=== PATIENT | male | born 1935 | race African-American/Black ===

== ENCOUNTER 2017-05-27 15:06 | Inpatient (IN) | payer OTHER, BC ==
[~2017-05-27] VITALS: Ht 175.3 cm; Wt 72.6 kg
--- NOTE | ~2017-05-27 | P ---
[facility] [place] [address] PROCEDURE REPORT Name: RENATO MARTINEZ Room #: 303-P [facility] IN ..#: [id number] Admission: 05/27/17 Attend Phys: Deshaun Leos DO Discharge: Date of : 35 Report #: [id number] THIS REPORT FOR: //name// CC: Van Leos PROCEDURE: Bi-V ICD generator exchange. PREOPERATIVE DIAGNOSIS: Biventricular implantable cardioverter-defibrillator at end of service. POSTOPERATIVE DIAGNOSIS: Biventricular implantable cardioverter-defibrillator at end of service. HISTORY OF PRESENT ILLNESS: The patient is an 82-year-old male with history of ischemic cardiomyopathy who was admitted to the hospital with congestive heart failure and was found to have a biventricular ICD, Medtronic, that was end of service. He is here for generator exchange. ANESTHESIA: The patient underwent MAC anesthesia with no anesthesia related complications. DESCRIPTION OF PROCEDURE: The patient underwent informed consent. We discussed the details of the procedure including the risks, which include but not limited to bleeding, infection, vascular damage, cardiac perforation and need for possible lead revisions. He understood these risks and is willing to proceed. He was brought to the EP laboratory in a fasting and sedated state and received IV vancomycin for antibiotic prophylaxis. Next, I injected lidocaine at the prior incision site. Incision was made and the pocket was opened. I had to perform dissection of the lead out because it was anchored to the bottom of the pocket making removal of device challenging. Eventually, these leads were freed and the leads were disconnected. He does have an underlying rhythm. The new device was connected and found to be functioning normally and I irrigated the pocket with vancomycin. I did take care of some bleeding in the pocket as well. I then placed a Medtronic TYRX antibiotic pouch due to his higher risk of infection. I then closed the pocket in 3 layers and placed surgical glue to the outer skin layer. Due to the extensive pocket revision required, I placed a pressure dressing to prevent any bleeding. The patient awoke neurologically and hemodynamically intact with no significant bleeding. The explanted generator was a Medtronic model #E421RRT, serial #[id number]. Originally implanted in November 2011. The newly implanted generator was a [employer] model #[id number], serial #[id number]. The atrial lead was a Medtronic model #4076, serial #[id number], implanted in 2011. The RV lead was a Medtronic model #6947, serial #[id number], also implanted in 2011. The LV lead was a Medtronic model #4296, serial #[id number], implanted in 2011. The atrial lead demonstrated a P-wave of 2 millivolts, the pacing impedance of 540 ohms and a pacing threshold [facility] [address] [place] [address] PROCEDURE REPORT Name: RENATO MARTINEZ Room #: 303-P [facility] IN .R.#: [id number] Admission: 05/27/17 Attend Phys: Deshaun Leos DO Discharge: Date of : 35 Report #: [id number] of 2 volts at 0.8 milliseconds. The RV lead demonstrated R waves greater than 12 millivolts, pacing impedance of 390 ohms, pacing threshold volts at 0.4 milliseconds. The shock impedances were within normal limits. The LV lead demonstrated a pacing impedance of 610 ohms and a pacing threshold of 1 volt at 0.5 milliseconds. The device is programmed to the DDD 60-130 mode. The VF zone was programmed at greater than beats per minute with ATP while charging followed by max output shocks. The VT zone was set at 180-220 beats per minute with 3 rounds of bursts followed by 3 rounds of ramp followed by max output shocks. CONCLUSIONS: 1. Successful generator exchange. 2. Satisfactory atrial, right ventricular and left ventricular pacing thresholds. 3. Successful implantation of a [employer]fort[employer]onic TYRX pouch. By: [id number] Peter Strauss MD /nt
--- NOTE | ~2017-05-27 | HC ---
[facility] [place] [address] CONSULTATION Name: RENATO MARTINEZ Room #: 303-P [facility] IN ..#: [id number] Admission: 05/27/17 Attend Phys: Deshaun Leos DO Discharge: Date of : 35 Report #: [id number] THIS REPORT FOR: //name// CC: Van Cal Leos REASON FOR CONSULTATION: His biventricular ICD is at the end of service. HISTORY OF PRESENT ILLNESS: The patient is an 82-year-old with a history of coronary artery disease, status post bypass surgery as well as a history of ischemic cardiomyopathy, status post Medtronic biventricular ICD implantation in 2011. His device was interrogated and found to be at end of service. The patient denies any problems with chest pain or chest tightness. He has been having worsening exertional dyspnea at home. He denies any chest pain. He denies PND, orthopnea. He denies presyncope or syncope. He denies lower extremity edema. REVIEW OF SYSTEMS: A 12-point review of systems was performed and was otherwise negative other than what I mentioned above. PAST MEDICAL HISTORY: 1. CAD, status post bypass. 2. Ischemic cardiomyopathy. 3. COPD. 4. Medtronic Bi-V ICD implanted in 2011. 5. Hypertension. 6. Hyperlipidemia. SOCIAL HISTORY: Quit smoking 50 years ago. FAMILY HISTORY: Significant for diabetes. ALLERGIES: He has no known drug allergies. HOME MEDICATIONS: Include chlorthalidone, nifedipine, ramipril, Lipitor, aspirin, hydrochlorothiazide and he is on Levaquin here. PHYSICAL EXAMINATION: VITAL SIGNS: Temperature 37.2, pulse 89, respiration 18, blood pressure 124/59, sats are 92% to 100%. All his temps here have been afebrile since admission. I's and O's reviewed. GENERAL: He is in no acute distress. HEENT: Oropharynx is clear. NECK: Supple, with no thyromegaly. HEART: Regular rate and rhythm with no murmurs, rubs, gallops. LUNGS: Clear to auscultation bilaterally with some mild wheezes. ABDOMEN: Soft, nontender, nondistended with no hepatosplenomegaly. [facility] [address] [place] [address] CONSULTATION Name: RENATO MARTINEZ Room #: 303-P [facility] IN [facility].#: [id number] Admission: 05/27/17 Attend Phys: Deshaun Leos DO Discharge: Date of : 35 Report #: [id number] EXTREMITIES: There is no clubbing, cyanosis or edema. NEUROLOGIC: His cranial nerves 2-12 are intact. His incision site appears to have healed nicely with no signs of infection. LABORATORY DATA: White count is 12.1, down from 17; hemoglobin is 11.3, hematocrit 33.5 and his platelets are 311. Chemistries: Sodium is 134, potassium 4.1, BUN 47, creatinine 2.5 up from 1.9, glucose 169. Troponin is negative times 1. ProBNP is elevated at 4011. His EKG showed sinus tachycardia with ventricular paced rhythm. His initial chest x-ray on admission showed a Bi-V ICD in place with sternal wires and what appears to be pulmonary edema and on repeat chest x-ray, this appears to be improved. His echocardiogram shows his EF is 40% to 45%. There is hypokinesis the base of the inferior wall. The calculated aortic valve area is 0.8 cm with a maximum pressure gradient of 38 and mean gradient of 21. His aortic valve planimetry is 1 cm2. ASSESSMENT: 1. Acute on chronic systolic heart failure. 2. Ischemic cardiomyopathy. 3. Coronary artery disease. 4. Moderate aortic stenosis. 5. Biventricular implantable cardioverter-defibrillator had end of service. The patient is an 82-year-old presenting with worsening shortness of breath who appears to have presented with likely a mixture of COPD and acute on chronic systolic heart failure. It appears that his chest x-ray is improving. He has a component of acute renal failure with an increase in his creatinine. His UNIQUE inhibitor is currently on hold. We will currently hold off on any further diuretics. In terms of his device, he will require a generator exchange. I discussed the details of the procedure including the risks, which include but not limited to bleeding, infection and need for possible lead revision. He understands these risks and is willing to proceed. We discussed the importance of routine followup in the device clinic here at [facility] and he says he is willing to comply. <ELECTRONICALLY SIGNED> By: Peter Strauss MD 05/30/17 0834 1419 2313 Peter Strauss MD /nt
--- NOTE | ~2017-05-27 | HC ---
[facility] [place] [address] CONSULTATION Name: RENATO MARTINEZ Room #: 303-P [facility] IN .R.#: [id number] Admission: 05/27/17 Attend Phys: Deshaun Leos DO Discharge: 06/02/17 Date of : 35 Report #: [id number] THIS REPORT FOR: //name// CC: Van Castrotrever Leos DATE OF SERVICE: 05/28/2017 REASON FOR CONSULTATION: Acute respiratory failure. IMPRESSION: 1. Probable acute systolic congestive heart failure. 2. Bronchitis. 3. Distant history of tobacco use, possible chronic obstructive pulmonary disease. 4. History of pacemaker. 5. Hypertension. 6. Hyperlipidemia. 7. Arthritis. 8. History of atrial fibrillation. PLAN: Agree with current therapy and would consider doxycycline as the antibiotic, about to have pacemaker checked and has not seen a learning disabilities resource teacher since Dr. Lee retired. HISTORY OF PRESENT ILLNESS: An 82-year-old male comes into the hospital, relates he has been having some shortness of breath, cough, no sputum production. No fever, chills or sweats. Feels better this morning when seen. PAST MEDICAL HISTORY: Surgeries include bypass surgery, pacemaker. ALLERGIES: No known. MEDICATIONS: Per chart include chlorthalidone, nifedipine, ramipril, naproxen, atorvastatin, aspirin, hydrochlorothiazide. FAMILY HISTORY: Positive for diabetes. SOCIAL HISTORY: Tobacco, quit 50 years ago. Negative significant ETOH. REVIEW OF SYSTEMS: Positive cough, no sputum production, no ulcer or liver disease. No hemoptysis, hematemesis or hematuria. Positive history of atrial fibrillation. No dysuria. Feels less short of breath currently. PHYSICAL EXAMINATION: VITAL SIGNS: Temperature 99.7, pulse 103, respirations 14, BP 135/59. [facility] [address] [place] [address] CONSULTATION Name: RENATO MARTINEZ Room #: 303-P [facility] IN ..#: [id number] Admission: 05/27/17 Attend Phys: Deshaun Leos DO Discharge: 06/02/17 Date of : 35 Report #: [id number] EYES: Negative icterus. LUNGS: Showed few crackles at bases. HEART: Regular. ABDOMEN: Bowel sounds present. EXTREMITIES: Showed no clubbing, cyanosis or edema. LABORATORY DATA: White count 17, hemoglobin 11.5, platelets 308, bands 8, BUN 31, creatinine 2, glucose 128, proBNP 4011. Troponin 0.05. Chest x-ray showed pulmonary infiltrates. Creatinine today 1.9. White count 11.2, hemoglobin 10.8, platelets 290, no bands. We will follow closely with you. <ELECTRONICALLY SIGNED> By: Tila Mehta MD 06/05/17 1511 1804 937 Tila Mehta MD /nt
--- NOTE | ~2017-05-27 | 2DMMODE ---
[facility] [address] [address] 2 D/M-MODE ECHOCARDIOGRAM Name: MICHELLERENATO Abdelrahman Room #: 303-P [facility] IN [facility]#: [id number] Admission: 05/27/17 Attend Phys: Deshaun Leos, Discharge: Date of : 35 Date of Service: 05/29/17 1123 Report #: [id number] THIS REPORT FOR: //name// APPROVED REPORT Study performed: 05/29/2017 08:49:52 EXAM: Comprehensive 2D, Doppler, and color-flow Echocardiogram Patient Location: Bedside Other Information Study Quality: Adequate Indications Congestive Heart Failure COPD Atrial Fibrillation CAD Hypertension/HDD 2D Dimensions RVDd: 39.28 mm LVEF(%): 36.43 (>50%) IVSd: 9.72 (7-11mm) LVOT Diam: 18.64 (18-24mm) LVDd: 45.04 mm PWd: 9.56 (7-11mm) Ascending Ao: 26.33 (22-36mm) LVDs: 37.21 (25-40mm) Aortic Root: 32.19 mm IVC: 12.00 mm Patrick's LVEF: 36.43 % Volumes Left Atrial Volume (Systole) Single Plane 4CH: 76.71 mL Single Plane 2CH: 82.10 mL LA ESV Index: 45.00 mL/m2 Aortic Valve AoV Peak Dominic.: 3.08 m/s AO Peak Gr.: 38.00 mmHg LVOT Max P.23 mmHg AO Mean Gr.: 21.23 mmHg LVOT Mean P.55 mmHg AO V2 Mean: 2.19 m/s LVOT Max V: 0.90 m/s AO V2 VTI: 63.67 cm LVOT Mean V: 0.56 m/s ABUNDIO (VTI): 0.59 cm2 LVOT V1 VTI: 13.66 cm ABUNDIO Vmax: 0.80 cm2 SV (LVOT): 37.26 mL [facility] [place] [address] 2 D/M-MODE ECHOCARDIOGRAM Name: RENATO MARTINEZ Room #: 303-P [facility] IN ..#: [id number] Admission: 05/27/17 Attend Phys: Deshaun Leos, Discharge: Date of : 35 Date of Service: 05/29/17 1123 Report #: [id number] Mitral Valve E/A Ratio: 1.2 MV Decel. Time: 155.06 ms MV E Max Dominic.: 1.26 m/s MV A Dominic.: 1.01 m/s IVRT: 86.51 ms Pulmonary Valve PV Peak Dominic.: 1.15 m/s PV Peak Gr.: 5.32 mmHg Pulmonary Vein P Vein S: 0.65 m/s P Vein A: 0.10 m/s P Vein D: 0.66 m/s P Vein A Dur.: 79.6 msec P Vein S/D Ratio: 0.98 Tricuspid Valve TR Peak Dominic.: 3.71 m/s RAP Estimate: 5.00 mmHg TR Peak Gr.: 55.17 mmHg Left Ventricle The left ventricle is normal size. There is normal left ventricular wall thickness. Left ventricular systolic function is moderately decreased. Hypokinesis involving base of inferior wall LVEF is 40-45%. This study is not technically sufficient to allow evaluation of the LV diastolic function. Right Ventricle Right ventricle is normal Right ventricle is function is normal Atria Left atrium is dilated. Right atrium is normal Aortic Valve The Aortic valve is sclerotic. Mild aortic regurgitation. There is moderate to severe valvular aortic stenosis. Calculated aortic valve area is 0.8 cm2 with maximum pressure gradient of 38 mmHg and mean pressure gradient of 21 mmHg. Aortic valve planimetry is 1.0 cm2. Mitral Valve Mild mitral annular calcification Mild mitral regurgitation. No evidence of mitral valve stenosis. Tricuspid Valve The tricuspid valve is normal in [place] [address] 2 D/M-MODE ECHOCARDIOGRAM Name: MICHELLERENATO Abdelrahman Room #: 303-P [facility] IN M.R.#: [id number] Admission: 05/27/17 Attend Phys: Deshaun Leos, Discharge: Date of : 35 Date of Service: 05/29/17 1123 Report #: [id number] regurgitation. Pulmonic Valve The pulmonary valve is normal in structure. Trace to mild pulmonic regurgitation. Great Vessels The aortic root is normal in size. IVC is normal in size and collapses >50% with inspiration. Pericardium There is no pericardial effusion. <Conclusion> Left ventricular systolic function is moderately decreased. Hypokinesis involving base of inferior wall LVEF is 40-45%. Left atrium is dilated. The Aortic valve is calcified, moderately severe valvular aortic stenosis. Peak pressure gradient of 38 mmHg and mean pressure gradient of 21 mmHg. Mild mitral regurgitation. Pulmonary artery pressure of 60mmHg No pericardial effusion <ELECTRONICALLY SIGNED> By: Aureliano Narvaez MD, FACC 05/29/17 1123 22 22 Aureliano Narvaez MD, FACC /INF
--- NOTE | ~2017-05-27 | HC ---
[facility] [address] CONSULTATION Name: RENATO MARTINEZ Room #: 303-P [facility] IN M.R.#: [id number] Admission: 05/27/17 Attend Phys: Deshaun Leos DO Discharge: Date of : 35 Report #: [id number] THIS REPORT FOR: //name// CC: Van Leos INFECTIOUS DISEASES CONSULTATION REASON FOR CONSULTATION: I was asked to evaluate the patient concerning bronchitis, possible pneumonia in the setting of congestive heart failure and the need for a permanent pacemaker battery exchange. HISTORY OF PRESENT ILLNESS: The patient presented on 05/27 with rather acute onset of shortness of breath following a week or so of productive cough of [id number] sputum. No fever, chills or sweats. Brought in the emergency room and found to have bilateral infiltrates and some effusion. His oxygen saturation was 84% on arrival. He was given oxygen per nasal cannula and improved over 90%. It was suspected that he may have a component of pneumonia and was placed on Levaquin. His creatinine was 2 and white count was 17 with a BNP of 4000. Over the last 48 hours, he has improved. He still remains on oxygen per nasal cannula, but his cough has lessened and the shortness of breath has improved as well. Cardiology evaluates and recommends permanent pacemaker battery exchange. PAST MEDICAL HISTORY: Hypertension, hyperlipidemia, atrial fibrillation, COPD and coronary bypass grafting. FAMILY HISTORY: Noncontributory. ALLERGIES: None known. MEDICATIONS: As noted on his MAR, including Levaquin. SOCIAL HISTORY: Past smoker. No significant alcohol intake. Lives with his and did travel to [place] 2 weeks ago. REVIEW OF SYSTEMS: No chest pain, nausea, vomiting, diarrhea, dysuria or frequency. PHYSICAL EXAMINATION: VITAL SIGNS: He is afebrile and hemodynamically stable. GENERAL: He was alert, cooperative and pleasant, on oxygen per nasal cannula at 2 liters. HEENT: Unremarkable, other than multiple teeth missing. NECK: Supple. LUNGS: Crackles heard mostly in the bases posteriorly. HEART: Regular with a 2/6 systolic murmur heard at the left sternal border. [facility] [address] [place] [address] CONSULTATION Name: RENATO MARTINEZ Room #: 303-P [facility] IN .R.#: [id number] Admission: 05/27/17 Attend Phys: Deshaun Leos DO Discharge: Date of : 35 Report #: [id number] ABDOMEN: Soft, nontender. No hepatosplenomegaly or mass. EXTREMITIES: No peripheral edema. NEUROLOGICAL EXAMINATION: Normal. LABORATORY DATA: Echocardiogram, moderately severe aortic stenosis. Chest x-ray, bilateral infiltrates with fluid in the right major fissure and small effusions. Hemoglobin 11.3, white count 12 with 84% segs, 2% bands and platelet count was 311,000. Sodium 134, potassium 4.1, bicarbonate 22 and creatinine 2.5. IMPRESSION AND PLAN: An 82-year-old with underlying coronary artery disease and permanent pacemaker, presents with congestive heart failure and component of bronchopneumonia. Agree with Levaquin. We would give dose of vancomycin at the time of his pacemaker exchange. This will be scheduled for later this week. We will await sputum culture results and we will check a urine for Legionella and Strep pneumo. <ELECTRONICALLY SIGNED> By: Tyrese Banuelos MD 05/30/17 1426 1638 2306 Tyrese Banuelos MD /nt
--- NOTE | ~2017-05-27 | EKG ---
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1935 Requested By: Yarelis Don Order Number: [id number] MD: Aureliano Narvaez Measurements Intervals [place] Rate: 105 P: -12 VA: 156 QRS: 139 QRSD: 154 T: 62 QT: 360 QTc: 476 Interpretive Statements Sinus rhythm with atrial premature complexes Left bundle branch block Compared to ECG 09/24/2011 10:17:40 Ventricular premature complex(es) no longer present Electronically Signed On 05-29-2017 9:20:59 CDT by Aureliano Narvaez [email or web address] <ELECTRONICALLY SIGNED> By: Aureliano Narvaez MD, [facility] 05/29/17 0920 1514 1514 Aureliano Narvaez MD, [facility] /EPI
[~2017-05-27 15:06] MED LIST: ACETAMINOPHEN325 M1 PO; ALEVE220 M1; ALTACE10 M1; ASPIRIN EC81 M1; CARVEDILOL12.5 MG; DILTIAZEM ER300 MG; HIGH B/P MED; HYDROCHLOROTHIA25 M1; LIPITOR40 MG; NIFEDICAL XL30 MG PO; NIFEDIPINE10 MG PO
[2017-05-27 15:11] VITALS: BP 147/71
[2017-05-27 15:46] LABS: HEMATOCRIT 34.9 % (42.0-52.0); HEMOGLOBIN 11.5 gm/dL (14.0-18.0); MCH 27.8 pg (26.0-34.0); MCV 84.2 fL (80.0-100.0); PLATELET COUNT 308 thou/uL (150-400); RBC 4.14 mil/uL (4.50-6.00); RDW 15.2 % (10.5-14.5)
[2017-05-27 15:47] LABS: MANUAL DIFF YES
[2017-05-27 15:54] LABS: CALCIUM 9.4 mg/dL (8.5-10.1); POTASSIUM 3.8 mmol/L (3.5-5.1)
[2017-05-27 16:05] LABS: ABSOLUTE NEUTROPHILS 16.2 thou/uL (1.4-8.2); HYPOCHROMASIA SLIGHT; OVALOCYTES OCCASIONAL; TOTAL CELL COUNT 100
[2017-05-27 16:06] LABS: TROPONIN-I 0.05 ng/mL (<0.04-0.07)
[2017-05-27] MEDS ORDERED: CHLORTHALIDONE50 MG PO (17:00)
[2017-05-27 17:55] VITALS: BP 148/68
[2017-05-27 18:38] VITALS: BP 158/69
[2017-05-27] MEDS ORDERED: TYLENOL325 MG PO (20:09)
[2017-05-27 23:30] VITALS: BP 136/70
[2017-05-28 04:18] VITALS: BP 139/67
[2017-05-28 07:37] LABS: HEMOGLOBIN 10.8 gm/dL (14.0-18.0); MCH 27.3 pg (26.0-34.0); MCHC 32.6 g/dL (28.0-37.0); MCV 83.5 fL (80.0-100.0); PLATELET COUNT 290 thou/uL (150-400); RBC 3.95 mil/uL (4.50-6.00); RDW 15.1 % (10.5-14.5); WBC 11.2 thou/uL (4.0-11.0)
[2017-05-28 07:41] LABS: MANUAL DIFF YES
[2017-05-28 07:47] LABS: CREATININE 1.9 mg/dL (0.7-1.3); POTASSIUM 3.7 mmol/L (3.5-5.1)
[2017-05-28 07:55] VITALS: BP 135/59
[2017-05-28 10:05] LABS: ABSOLUTE NEUTROPHILS 10.1 thou/uL (1.4-8.2); TOTAL CELL COUNT 100
[2017-05-28 10:06] LABS: ANISOCYTOSIS 1+
[2017-05-28 11:57] VITALS: BP 163/72
[2017-05-28 15:17] VITALS: BP 132/69
[2017-05-28 18:59] VITALS: BP 137/66
[2017-05-29 03:45] VITALS: BP 136/62
[2017-05-29 03:49] LABS: HEMATOCRIT 33.5 % (42.0-52.0); HEMOGLOBIN 11.3 gm/dL (14.0-18.0); MCH 27.7 pg (26.0-34.0); MCHC 33.6 g/dL (28.0-37.0); MCV 82.6 fL (80.0-100.0); PLATELET COUNT 311 thou/uL (150-400); RBC 4.06 mil/uL (4.50-6.00); RDW 14.9 % (10.5-14.5); WBC 12.1 thou/uL (4.0-11.0)
[2017-05-29 03:50] LABS: CALCIUM 9.1 mg/dL (8.5-10.1); CREATININE 2.5 mg/dL (0.7-1.3); POTASSIUM 4.1 mmol/L (3.5-5.1)
[2017-05-29 03:59] LABS: MANUAL DIFF YES
[2017-05-29 07:42] VITALS: BP 124/59
[2017-05-29 08:40] LABS: ABSOLUTE NEUTROPHILS 10.4 thou/uL (1.4-8.2); PLATELET ESTIMATE NORMAL; TOTAL CELL COUNT 100
[2017-05-29 15:07] VITALS: BP 141/61
[2017-05-29 19:35] VITALS: BP 141/59
[2017-05-30 04:00] VITALS: BP 140/69
[2017-05-30 05:42] LABS: HEMATOCRIT 33.8 % (42.0-52.0); HEMOGLOBIN 11.4 gm/dL (14.0-18.0); MCH 27.9 pg (26.0-34.0); MCHC 33.6 g/dL (28.0-37.0); MCV 82.8 fL (80.0-100.0); RBC 4.08 mil/uL (4.50-6.00); RDW 14.9 % (10.5-14.5); WBC 10.5 thou/uL (4.0-11.0)
[2017-05-30 06:02] LABS: CREATININE 2.1 mg/dL (0.7-1.3); POTASSIUM 3.8 mmol/L (3.5-5.1)
[2017-05-30 08:15] VITALS: BP 142/56
[2017-05-30 15:46] VITALS: BP 127/58
[2017-05-30 19:18] VITALS: BP 140/62
[2017-05-31 03:01] VITALS: BP 126/60
[2017-05-31 09:06] VITALS: BP 137/66
[2017-05-31 13:16] LABS: HEMATOCRIT 32.9 % (42.0-52.0); HEMOGLOBIN 10.9 gm/dL (14.0-18.0); MANUAL DIFF YES; MCH 27.6 pg (26.0-34.0); MCHC 33.1 g/dL (28.0-37.0); MCV 83.4 fL (80.0-100.0); PLATELET COUNT 347 thou/uL (150-400); RBC 3.95 mil/uL (4.50-6.00); RDW 15.1 % (10.5-14.5); WBC 11.3 thou/uL (4.0-11.0)
[2017-05-31 13:27] LABS: CALCIUM 9.3 mg/dL (8.5-10.1); CREATININE 2.5 mg/dL (0.7-1.3); POTASSIUM 3.7 mmol/L (3.5-5.1)
[2017-05-31 13:29] LABS: INR 1.1; PROTIME 10.8 Seconds (9.3-11.4)
[2017-05-31 13:49] LABS: ABSOLUTE NEUTROPHILS 9.9 thou/uL (1.4-8.2); ANISOCYTOSIS 1+; HYPOCHROMASIA 1+; TOTAL CELL COUNT 100
[2017-05-31 15:13] VITALS: BP 128/61
[2017-05-31 19:20] VITALS: BP 132/54
[2017-05-31 23:43] VITALS: BP 136/66
[2017-06-01 04:18] VITALS: BP 129/60
[2017-06-01 07:48] VITALS: BP 145/76
[2017-06-01 13:19] VITALS: BP 151/74
[2017-06-01 14:16] VITALS: BP 134/66
[2017-06-01 15:11] VITALS: BP 119/63
[2017-06-01 20:00] VITALS: BP 125/57
[2017-06-02 04:00] VITALS: BP 142/60
[2017-06-02 08:25] VITALS: BP 136/66
[2017-06-02] MEDS ORDERED: LOPRESSOR25 PO (09:32)
[2017-06-02 13:14] VITALS: BP 136/66
[2017-06-02 14:52] VITALS: BP 136/66
[2017-06-02] MEDS ORDERED: LEVAQUIN 750 M750 MG PO (15:03)
[2017-06-02 15:45] VITALS: BP 136/66
== END 2017-06-02 15:40 | disposition home health service (06) | DRG 853 ==
LOC: ER 15:06 → EROBS 16:44 → 3N 16:44
PROVIDERS: Emergency Medicine; Family Medicine; Internal Medicine Cardiovascular Disease; Internal Medicine Pulmonary Disease
PROC: 0JH608Z Insertion of Defibrillator Generator into Chest Subcutaneous Tissue and Fascia, Open Approach (ICD-10-PCS; principal; 2017-06-02)
PROC: 0JPT0PZ Removal of Cardiac Rhythm Related Device from Trunk Subcutaneous Tissue and Fascia, Open Approach (ICD-10-PCS; principal; 2017-06-02)
DX: A41.9 Sepsis, unspecified organism (principal); N17.0 Acute kidney failure with tubular necrosis; J18.9 Pneumonia, unspecified organism; J96.01 Acute respiratory failure with hypoxia; I50.23 Acute on chronic systolic (congestive) heart failure; J44.0 Chronic obstructive pulmonary disease with (acute) lower respiratory infection; I13.0 Hypertensive heart and chronic kidney disease with heart failure and stage 1 through stage 4 chronic kidney disease, or unspecified chronic kidney disease; E78.5 Hyperlipidemia, unspecified; I48.91 Unspecified atrial fibrillation; I25.10 Atherosclerotic heart disease of native coronary artery without angina pectoris; I25.5 Ischemic cardiomyopathy; I35.0 Nonrheumatic aortic (valve) stenosis; J20.9 Acute bronchitis, unspecified; M19.90 Unspecified osteoarthritis, unspecified site; I27.2 Other secondary pulmonary hypertension; N18.9 Chronic kidney disease, unspecified; Z95.1 Presence of aortocoronary bypass graft; Z87.891 Personal history of nicotine dependence; Z83.3 Family history of diabetes mellitus
CPT/HCPCS: 10096; 62110; 62900; 70005

== ENCOUNTER 2017-06-21 11:06 | Emergency (ER) | payer OTHER, BC ==
[~2017-06-21] VITALS: Ht 175.3 cm; Wt 73.5 kg
--- NOTE | ~2017-06-21 | EKG ---
[place] [address] [place] [address] ELECTROCARDIOGRAM REPORT Name: RENATO MARTINEZ [facility] [id number] Admission: 06/21/17 Attend Phys: Discharge: 06/21/17 Date of : 35 Report #: [id number] THIS REPORT FOR: //name// [facility] ED Test Date: 2017-06-21 Test Time: 11:28:30 Pat Name: RENATO MARTINEZ Department: Room: Gender: Photograph [facility] 1935 Requested By: Delon Franklin Order Number: [id number] MD: Aureliano Narvaez Measurements Intervals [place] Rate: 70 P: 10 SD: 156 QRS: 149 QRSD: 150 T: 12 QT: 443 QTc: 479 Interpretive Statements Atrial-sensed ventricular-paced rhythm No further analysis attempted due to paced rhythm Compared to ECG 05/27/2017 15:14:25 No significant change was found Electronically Signed On 06-22-2017 8:57:28 CDT by Aureliano Narvaez [email or web address] <ELECTRONICALLY SIGNED> By: Aureliano Narvaez MD, [facility] 06/22/17 0857 1128 1128 Aureliano Narvaez MD, [facility] /EPI
--- NOTE | ~2017-06-21 | EKG ---
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
[~2017-06-21 11:06] MED LIST changes: +CHLORTHALIDONE50 MG PO; +LEVAQUIN 750 M750 MG PO; +LOPRESSOR25 PO; +TYLENOL325 MG PO
[2017-06-21 11:48] LABS: ABSOLUTE NEUTROPHILS 5.6 thou/uL (1.4-8.2); BASOPHILS 1.4 % (0.0-2.0); EOSINOPHILS 1.5 % (0.0-3.0); HEMATOCRIT 31.6 % (42.0-52.0); HEMOGLOBIN 10.4 gm/dL (14.0-18.0); MANUAL DIFF NO; MCH 27.4 pg (26.0-34.0); MCHC 32.9 g/dL (28.0-37.0); MCV 83.3 fL (80.0-100.0); MONOCYTES 7.8 % (1.0-8.0); PLATELET COUNT 379 thou/uL (150-400); POLYS 75.3 % (36.0-66.0); RDW 14.8 % (10.5-14.5); WBC 7.4 thou/uL (4.0-11.0)
[2017-06-21 11:54] LABS: CALCIUM 9.1 mg/dL (8.5-10.1); CREATININE 1.9 mg/dL (0.7-1.3); POTASSIUM 4.8 mmol/L (3.5-5.1)
[2017-06-21] MEDS ORDERED: MINOCIN100 MG PO (13:29)
== END 2017-06-21 13:43 | disposition home or self-care (01) ==
LOC: ER 11:06
PROVIDERS: Emergency Medicine
DX: L76.34 Postprocedural seroma of skin and subcutaneous tissue following other procedure (principal); I10 Essential (primary) hypertension; I48.91 Unspecified atrial fibrillation; E78.00 Pure hypercholesterolemia, unspecified; J44.9 Chronic obstructive pulmonary disease, unspecified; Z95.0 Presence of cardiac pacemaker; Z95.1 Presence of aortocoronary bypass graft; F10.99 Alcohol use, unspecified with unspecified alcohol-induced disorder; Z87.891 Personal history of nicotine dependence

== ENCOUNTER → 2017-12-14 | Outpatient (CLI) | payer OTHER, BC ==
[~2017-12-14] MED LIST changes: +MINOCIN100 MG PO
== END ==
LOC: NUC 07:10
DX: I48.91 Unspecified atrial fibrillation (principal); I35.0 Nonrheumatic aortic (valve) stenosis; I10 Essential (primary) hypertension; I25.10 Atherosclerotic heart disease of native coronary artery without angina pectoris; J44.9 Chronic obstructive pulmonary disease, unspecified; Z87.891 Personal history of nicotine dependence

== ENCOUNTER 2018-10-09 16:25 | Inpatient (IN) | payer OTHER, BC ==
[~2018-10-09] VITALS: Ht 175.3 cm; Wt 82.6 kg
--- NOTE | ~2018-10-09 | HC ---
[facility] [place] [address] CONSULTATION Name: RENATO MARTINEZ Room #: 362-P ADM IN M.R.#: [id number] Admission: 10/09/18 Attend Phys: Valentin Huizar MD Discharge: Date of : 35 Report #: [id number] THIS REPORT FOR: //name// CC: NO PCP Valentin Huizar DATE OF SERVICE: 10/10/2018 REASON FOR CONSULTATION: Chronic kidney disease. HISTORY OF PRESENT ILLNESS: The patient with known chronic kidney disease, baseline creatinine between 2 and 2.5 for many years, has known coronary artery disease with ischemic cardiomyopathy, ejection fraction 40%, and worsening aortic stenosis. He presents with worsening swelling and exertional dyspnea, particularly the lower extremities. He has gained at least 40-50 pounds of fluid. PAST MEDICAL HISTORY: He has a biventricular ICD, previous history of coronary artery bypass, history of chronic obstructive pulmonary disease, hypertension, paroxysmal atrial fibrillation, but in a paced rhythm for some time. He has not had any shocks from the defibrillator or any chest pain. HOME MEDICATIONS: As listed include ramipril 10 mg daily, carvedilol 25 mg b.i.d., furosemide 40 mg daily, atorvastatin 40 mg daily. SOCIAL HISTORY: Former smoker. Lives at home with his . FAMILY HISTORY: Positive for hypertension, but not kidney disease. It is strongly positive for heart disease and heart failure. REVIEW OF SYSTEMS: GENERAL: He has been deteriorating. EYES: His vision is okay. ENT: Hearing okay, swallow is okay. No mouth sores. ENDOCRINE: No diabetes or thyroid disease. RESPIRATORY: Easily short winded with borderline orthopnea. CARDIAC: No chest pain or palpitations. GASTROINTESTINAL: Excellent appetite. GENITOURINARY: A little bit of a decrease in urinary stream. NEUROLOGIC: No seizure, syncope or stroke, but has had a little bit worsening of balance and generalized weakness. MUSCULOSKELETAL: No arthritis. PHYSICAL EXAMINATION: GENERAL: This is a reasonably well-appearing gentleman, in reasonably good spirits, seen in his hospital bed. [facility] [address] [place] [address] CONSULTATION Name: RENATO MARTINEZ Room #: 362- ADM IN M.R.#: [id number] Admission: 10/09/18 Attend Phys: Valentin Huizar MD Discharge: Date of : 35 Report #: [id number] SKIN: Unremarkable except for the swelling. SKELETAL: Well developed, well nourished. HEENT: Extraocular movements are full. Vision intact. No scleral icterus. Hearing intact. Mucous membranes moist. Tongue, buccal mucosa benign. NECK: Supple, no carotid bruits are heard. CHEST: Shows slightly diminished breath sounds at the bases. HEART: Regular, but distant. ABDOMEN: Soft and nontender. EXTREMITIES: Show brawny generalized edema bordering on anasarca throughout. LABORATORY DATA: Creatinine is 2.1. Potassium is 4, BUN 42. Hemoglobin is 11.6. ASSESSMENT AND PLAN: 1. Anasarca. He has anasarca, multifactorial, related to his renal disease. He does have a slightly low serum albumin. I will check his urine proteins and urinalysis for completeness, although a complete renal workup is not needed here as he has had longstanding elevated creatinine, is followed by an outpatient supervisor counseling and guidance. He has been started on intermittent Lasix. We will see how he does with diuresis. He probably will need at the very least combination diuretics. We will have to watch his electrolytes carefully and proceed from there. 2. Ischemic cardiomyopathy with decreased left ventricular ejection fraction. 3. Aortic stenosis. He will get a repeat echo. 4. Biventricular implantable cardioverter-defibrillator with paced rhythm. 5. History of hypertension. By: 1106 1128 Eyad Ríos MD /nt
--- NOTE | ~2018-10-09 | EKG ---
[place] [address] [facility] [place] [address] ELECTROCARDIOGRAM REPORT Name: RENATO MARTINEZ Room #: 362-P ADM IN M.R.#: [id number] Admission: 10/09/18 Attend Phys: Valentin Huizar MD Discharge: Date of : 35 Report #: [id number] THIS REPORT FOR: //name// [facility] ED Test Date: 2018-10-09 Test Time: 16:38:56 Pat Name: RENATO MARTINEZ Department: Room: 362 Gender: M Etl Application Developer: YUNIOR : 1935 Requested By: Yarelis Don Order Number: [id number] MD: Aureliano Narvaez Measurements Intervals [place] Rate: 69 P: 14 [place]: 111 QRS: 162 QRSD: 150 T: -27 QT: 430 QTc: 461 Interpretive Statements Ventricular-paced rhythm No further analysis attempted due to paced rhythm Compared to ECG 06/21/2017 11:28:30 No significant change was found Electronically Signed On 10-10-2018 9:02:05 GRAVEL WHEELER by Aureliano Naravez [email or web address] <ELECTRONICALLY SIGNED> By: Aureliano Narvaez MD, [facility] 10/10/18 0902 1638 163 Aureliano Narvaez MD, [facility] /EPI
--- NOTE | ~2018-10-09 | 2DMMODE ---
[facility] [place] [address] 2 D/M-MODE ECHOCARDIOGRAM Name: RENATO MARTINEZ Room #: 362-P ADM IN M.R.#: [id number] Admission: 10/09/18 Attend Phys: Valentin Huizar MD Discharge: Date of : 35 Date of Service: 10/10/18 1505 Report #: [id number] THIS REPORT FOR: //name// APPROVED REPORT Study performed: 10/10/2018 09:55:49 EXAM: Comprehensive 2D, Doppler, and color-flow Echocardiogram Patient Location: Bedside Room #: 362 Status: routine BSA: 2.04 HR: 76 bpm BP: 150/75 mmHg Rhythm: Pacemaker Other Information Study Quality: Good Indications Short of breath, leg swelling. Hx: CABG, CHF, Pacemaker, COPD, HTN, HLP 2D Dimensions RVDd: 45.92 mm IVSd: 11.05 (7-11mm) LVOT Diam: 20.90 (18-24mm) LVDd: 50.05 mm PWd: 10.40 (7-11mm) Ascending Ao: 30.39 (22-36mm) LVDs: 41.70 (25-40mm) Aortic Root: 33.98 mm Volumes Left Atrial Volume (Systole) Single Plane 4CH: 76.05 mL Single Plane 2CH: 92.87 mL LA ESV Index: 45.00 mL/m2 Aortic Valve AoV Peak Dominic.: 3.26 m/s AO Peak Gr.: 42.49 mmHg LVOT Max P.89 mmHg AO Mean Gr.: 22.80 mmHg AO V2 Mean: 2.26 m/s LVOT Max V: 0.85 m/s AO V2 VTI: 67.30 cm ABUNDIO Vmax: 0.89 cm2 Mitral Valve [facility] [place] [address] 2 D/M-MODE ECHOCARDIOGRAM Name: RENATO MARTINEZ [facility] Room #: 362-P ADM IN M.R.#: [id number] Admission: 10/09/18 Attend Phys: Valentin Huizar MD Discharge: Date of : 35 Date of Service: 10/10/18 1505 Report #: [id number] E/A Ratio: 1.3 MV Decel. Time: 124.73 ms MV E Max Dominic.: 1.05 m/s MV A Dominic.: 0.78 m/s MV PHT: 36.17 ms IVRT: 64.59 ms Pulmonary Valve PV Peak Dominic.: 0.85 m/s PV Peak Gr.: 2.86 mmHg Pulmonary Vein P Vein S: 0.60 m/s P Vein D: 0.44 m/s P Vein S/D Ratio: 1.36 Tricuspid Valve TR Peak Dominic.: 3.84 m/s RAP Estimate: 10.00 mmHg TR Peak Gr.: 59.13 mmHg PA Pressure: 69.00 mmHg Left Ventricle The left ventricle is normal size. There is global hypokinesis of the left ventricle. There is normal left ventricular wall thickness. Left ventricular systolic function is moderate to severely decreased LVEF 35%. Right Ventricle Right ventricle is mildly dilated. Right ventricle is moderately hypokinetic. Atria Left atrium is mildly dilated. Right atrium is mildly dilated. Aortic Valve Aortic valve is heavily calcified. Mild aortic regurgitation. There is moderate to severe valvular aortic stenosis. Calculated aortic valve area is 0.9 cm2 with maximum pressure gradient of 42 mmHg and mean pressure gradient of 23 mmHg. Mitral Valve Mitral valve leaflets are mildly calcified. Mild mitral regurgitation. No evidence of mitral valve stenosis. Tricuspid Valve The tricuspid valve is normal in structure. Moderate tricuspid [address] [address] 2 D/M-MODE ECHOCARDIOGRAM Name: RENATO MARTINEZ Room #: 362-P [facility] IN ..#: [id number] Admission: 10/09/18 Attend Phys: Valentin Huizar MD Discharge: Date of : 35 Date of Service: 10/10/18 1505 Report #: [id number] regurgitation. Estimated PAP is 65mmHg. Pulmonic Valve The pulmonary valve is normal in structure. Trace pulmonic regurgitation. Great Vessels The aortic root is normal in size. The ascending aorta is normal in size. IVC is normal in size and collapses <50% with inspiration. Pericardium There is no pericardial effusion. <Conclusion> Left ventricular systolic function is moderate to severely decreased LVEF 35%. Both atria are dilated. Aortic valve is heavily calcified, moderate to severe valvular aortic stenosis. Calculated aortic valve area is 0.9 cm2 (Peak gradient of 42 mmHg, mean pressure gradient of 23 mmHg). Mild aortic regurgitation. Mitral valve leaflets are mildly calcified. Mild mitral regurgitation. Moderate tricuspid regurgitation. Estimated pulmonary artery pressure of 65mmHg. There is no pericardial effusion. <ELECTRONICALLY SIGNED> By: Aureliano Narvaez MD, FACC 10/10/18 1505 1505 1505 Aureliano Narvaez MD, FACC /INF
--- NOTE | ~2018-10-09 | HC ---
[facility] [place] [address] CONSULTATION Name: RENATO MARTINEZ Room #: 362-P ADM IN M.R.#: [id number] Admission: 10/09/18 Attend Phys: Valentin Huizar MD Discharge: Date of : 35 Report #: [id number] THIS REPORT FOR: //name// CC: NO PCP Valentin Huizar DATE OF SERVICE: 10/11/2018 HISTORY OF PRESENT ILLNESS: We were asked to see the patient by Dr. Garza. The patient is an 83-year-old with shortness of breath and fluid overload and admitted from the Emergency Department on 10/09/2018. Since admission, the patient was noted to have important calcific aortic stenosis. Echo shows a calculated valve area of 0.9 cm2 with a peak gradient of 42 mmHg and a mean gradient of 23 mmHg. Left ventricular function is reduced with an ejection fraction of approximately 35%. There is mild aortic incompetence and moderate tricuspid incompetence. No pericardial effusion was identified. A CT scan showed a thick pleura bilaterally with some calcification posteriorly. There was also fluid in the fissure which presents as a pseudotumor on chest x-ray. CT scan shows this to be fluid density, however. The patient has been treated with diuretics and has had weight loss and some resolution of his peripheral edema. Other medical problems this admission include acute on chronic renal dysfunction, heart failure exacerbation, diagnosis of community-acquired pneumonia with hypoxemia. ALLERGIES: None known. MEDICATIONS: Currently includes vitamin B12, folate, Lasix, chlorthalidone, magnesium, lisinopril, spironolactone, atorvastatin, aspirin, carvedilol, and acetaminophen. PAST SURGICAL HISTORY: Includes coronary artery bypass surgery in 2003 and a biventricular pacemaker. SOCIAL HISTORY: The patient is a former smoker. The patient states he worked for [employer] for many years. The patient does not know of any specific asbestos exposure in that capacity. REVIEW OF SYSTEMS: GENERAL: As mentioned, the patient was admitted with generalized weakness and shortness of breath. No fever or chills. HEENT: No headache. Denies change in vision. Denies change in hearing. No sore throat. [facility] [address] [place] [place] [address] CONSULTATION Name: RENATO MARTINEZ Room #: 362-P ADM IN M.R.#: [id number] Admission: 10/09/18 Attend Phys: Valentin Huizar MD Discharge: Date of : 35 Report #: [id number] PULMONARY: Shortness of breath with exertion. No productive cough. CARDIAC: No angina. Did have shortness of breath with fluid retention as an admitting complaint. GASTROINTESTINAL: No nausea, vomiting or blood. GENITOURINARY: No dysuria or blood. MUSCULOSKELETAL: No bone or joint complaints. SKIN: No rash or infection. NEUROLOGIC: No motor or sensory loss. No transient ischemic attacks. PSYCHIATRIC: No hallucinations or anxiety. HEMATOLOGIC: Denies symptoms of anemia. PHYSICAL EXAMINATION: VITAL SIGNS: Today, blood pressure 132/60, heart rate paced at 75, pulse ox 90% sat on room air, respiratory rate 20. HEENT: No scleral icterus. Pupils equal. No obvious arcus. NECK: No cervical bruits. CHEST: Decreased breath sounds, right worse than left, crackles at bases bilaterally. ABDOMEN: Soft, no mass, no tenderness. SKIN: No rash or infection. EXTREMITIES: No asymmetry or deformity. NEUROLOGIC: No obvious motor or sensory loss. PSYCHIATRIC: Mood and affect are appropriate. I reviewed the case with Dr. Tineo and with Dr. Garza. I also reviewed the CT scan with Dr. Awad in Radiology. There is some pleural thickening, right worse than left and some calcification posteriorly. Typically, the calcification is evidence of benign disease. The pleural thickening is somewhat concerning for mesothelioma. There is also a loculated fluid within the fissure on the right side, but this does not appear to be a primary pulmonary lesion, but rather the pseudotumor as described. I reviewed risks and details of video-assisted thoracoscopy with pleural biopsy with the patient. This would require general anesthesia, however. Risks and details of surgery were discussed. These include, but are not limited to, bleeding, infection, anesthesia risks, heart and lung problems, and of course include the imponderables of diagnosis. Options and alternatives were reviewed. In as much as the patient has important aortic stenosis that is not being treated specifically and it does not appear that there is a plan for treatment, I think the risk/benefit ratio of pleural biopsy at this point favors observational treatment. Even if mesothelioma is found, that is not something that would be easily and successfully treated. Risks and details were discussed with the patient who understands all of this and agrees. [address] [address] CONSULTATION Name: RENATO MARTINEZ Room #: 362-P ADM IN M.R.#: [id number] Admission: 10/09/18 Attend Phys: Valentin Huizar MD Discharge: Date of : 35 Report #: [id number] Thank you for the consult. By: 1234 1322 Renato Osborne MD /nt
[~2018-10-09 16:25] MED LIST changes: -ALTACE10 M1; +ALTACE10 MG PO
[2018-10-09 16:28] VITALS: BP 136/94
[2018-10-09] MEDS ORDERED: COREG25 MG PO (17:20)
[2018-10-09 17:21] LABS: ABSOLUTE NEUTROPHILS 4.8 thou/uL (1.4-8.2); BASOPHILS 1.2 % (0.0-2.0); EOSINOPHILS 1.1 % (0.0-3.0); HEMATOCRIT 37.1 % (42.0-52.0); HEMOGLOBIN 12.2 gm/dL (14.0-18.0); LYMPHOCYTES 9.7 % (24.0-44.0); MCH 28.7 pg (26.0-34.0); MCHC 32.9 g/dL (28.0-37.0); MCV 87.2 fL (80.0-100.0); MONOCYTES 6.9 % (1.0-8.0); PLATELET COUNT 213 thou/uL (150-400); POLYS 81.1 % (36.0-66.0); RBC 4.25 mil/uL (4.50-6.00); RDW 18.1 % (10.5-14.5)
[2018-10-09] MEDS ORDERED: LASIX 20 MG TAB20 MG PO (17:21)
[2018-10-09 17:28] LABS: ANION GAP 9 mmol/L (7-16); BUN 43 mg/dL (7-18); CHLORIDE 106 mmol/L (98-107); CO2 23 mmol/L (21-32); CREATININE 2.2 mg/dL (0.7-1.3); GLUCOSE 116 mg/dL (74-106); POTASSIUM 4.2 mmol/L (3.5-5.1); SODIUM 138 mmol/L (136-145)
[2018-10-09 17:37] LABS: TROPONIN-I <0.06 ng/mL (<0.06)
[2018-10-09 18:39] VITALS: BP 147/72
[2018-10-09 19:05] VITALS: BP 159/73
[2018-10-09 19:59] VITALS: BP 151/82
[2018-10-10 00:06] VITALS: BP 155/77
[2018-10-10 04:20] VITALS: BP 145/80
[2018-10-10 05:48] LABS: HEMOGLOBIN 11.6 gm/dL (14.0-18.0); MCH 29.1 pg (26.0-34.0); MCHC 33.3 g/dL (28.0-37.0); MCV 87.4 fL (80.0-100.0); RDW 17.4 % (10.5-14.5)
[2018-10-10 06:06] LABS: ALBUMIN 2.7 g/dL (3.4-5.0); CALCIUM 8.6 mg/dL (8.5-10.1); CREATININE 2.1 mg/dL (0.7-1.3); MAGNESIUM 1.7 mg/dL (1.8-2.4); TOTAL BILIRUBIN 0.6 mg/dL (<0.1-1.0); TOTAL PROTEIN 6.2 g/dL (6.4-8.2)
[2018-10-10 08:09] VITALS: BP 150/75
[2018-10-10 16:02] VITALS: BP 137/64
[2018-10-10 17:00] LABS: URINE BILIRUBIN NEGATIVE (Negative); URINE BLOOD NEGATIVE (Negative); URINE CLARITY CLEAR; URINE COLOR YELLOW; URINE GLUCOSE-RANDOM* NEGATIVE (Negative); URINE KETONES NEGATIVE (Negative); URINE LEUKOCYTES NEGATIVE (Negative); URINE NITRITE NEGATIVE (Negative); URINE PROTEIN (DIPSTICK) NEGATIVE (Negative); URINE SPECIFIC GRAVITY 1.015 (1.005-1.035); URINE UROBILINOGEN 0.2 E.U./dl (0.2-1.0)
[2018-10-10 17:03] LABS: PROT/CREAT RATIO 0.2; URINE CREATININE-RANDOM* 109.3 mg/dL; URINE PROTEIN-RANDOM* 21.2 mg/dL (<11.9)
[2018-10-10 19:40] VITALS: BP 154/76
[2018-10-10 19:50] VITALS: BP 101/57
[2018-10-11 04:57] LABS: ALBUMIN 2.9 g/dL (3.4-5.0); CALCIUM 9.1 mg/dL (8.5-10.1); CREATININE 2.1 mg/dL (0.7-1.3); HEMATOCRIT 37.6 % (42.0-52.0); HEMOGLOBIN 12.3 gm/dL (14.0-18.0); MAGNESIUM 1.7 mg/dL (1.8-2.4); MCH 28.6 pg (26.0-34.0); MCHC 32.6 g/dL (28.0-37.0); MCV 87.7 fL (80.0-100.0); PHOSPHORUS 3.6 mg/dL (2.5-4.9); POTASSIUM 4.2 mmol/L (3.5-5.1); RBC 4.29 mil/uL (4.50-6.00); RDW 17.9 % (10.5-14.5); WBC 5.9 thou/uL (4.0-11.0)
[2018-10-11 05:10] VITALS: BP 106/61
[2018-10-11 06:18] LABS: FOLIC ACID 5.4 ng/mL (8.6-58.9)
[2018-10-11 07:31] VITALS: BP 132/60
[2018-10-11 16:39] VITALS: BP 139/71
[2018-10-11 20:45] VITALS: BP 120/63
[2018-10-12 04:00] VITALS: BP 124/64
[2018-10-12 06:11] LABS: ALBUMIN 2.8 g/dL (3.4-5.0); CALCIUM 9.1 mg/dL (8.5-10.1); PHOSPHORUS 3.9 mg/dL (2.5-4.9)
[2018-10-12 07:37] VITALS: BP 140/61
[2018-10-12] MEDS ORDERED: SPIRONOLACTONE25 M1 PO (10:51)
[2018-10-12] MEDS ORDERED: CHLORTHALIDONE25 MG PO (10:51)
[2018-10-12 10:59] VITALS: BP 140/61
== END 2018-10-12 11:48 | disposition home or self-care (01) | DRG 682 ==
LOC: ER 16:25 → EROBS 18:29 → 3W 18:29 → ENTRNSPT 10-12 11:33 → EDTRNSPTSTS 10-12 11:35 → 3W 10-12 11:48
PROVIDERS: Emergency Medicine; Hospitalist; Internal Medicine; Internal Medicine Cardiovascular Disease; Internal Medicine Nephrology
DX: N17.9 Acute kidney failure, unspecified (principal); J96.01 Acute respiratory failure with hypoxia; I50.23 Acute on chronic systolic (congestive) heart failure; E46 Unspecified protein-calorie malnutrition; I13.0 Hypertensive heart and chronic kidney disease with heart failure and stage 1 through stage 4 chronic kidney disease, or unspecified chronic kidney disease; E78.5 Hyperlipidemia, unspecified; J44.9 Chronic obstructive pulmonary disease, unspecified; I25.10 Atherosclerotic heart disease of native coronary artery without angina pectoris; I25.5 Ischemic cardiomyopathy; I48.0 Paroxysmal atrial fibrillation; I35.0 Nonrheumatic aortic (valve) stenosis; R91.8 Other nonspecific abnormal finding of lung field; N18.4 Chronic kidney disease, stage 4 (severe); E83.42 Hypomagnesemia; E53.8 Deficiency of other specified B group vitamins; Z95.1 Presence of aortocoronary bypass graft; Z95.0 Presence of cardiac pacemaker; Z87.891 Personal history of nicotine dependence; Z82.49 Family history of ischemic heart disease and other diseases of the circulatory system; Z79.82 Long term (current) use of aspirin; Z84.1 Family history of disorders of kidney and ureter; Z79.899 Other long term (current) drug therapy; Z68.26 Body mass index [BMI] 26.0-26.9, adult; Z91.14 Patient's other noncompliance with medication regimen; I25.2 Old myocardial infarction
CPT/HCPCS: 10879

== ENCOUNTER → 2019-02-12 | Outpatient (CLI) | payer OTHER, BC ==
[~2019-02-12] VITALS: Ht 175.3 cm; Wt 78.9 kg
[2019-02-12] VITALS (9 sets, daily range): BP systolic 126–142; BP diastolic 53–69
[~2019-02-12] MED LIST changes: +CHLORTHALIDONE25 MG PO; +COREG25 MG PO; +LASIX 20 MG TAB20 MG PO; +SPIRONOLACTONE25 M1 PO
[2019-02-12 08:10] LABS: HEMATOCRIT 35.1 % (42.0-52.0); HEMOGLOBIN 11.4 gm/dL (14.0-18.0); MCH 29.3 pg (26.0-34.0); MCHC 32.4 g/dL (28.0-37.0); MCV 90.3 fL (80.0-100.0); RBC 3.89 mil/uL (4.50-6.00); RDW 16.1 % (10.5-14.5); WBC 4.6 thou/uL (4.0-11.0)
[2019-02-12 08:22] LABS: CREATININE 2.3 mg/dL (0.7-1.3); POTASSIUM 5.2 mmol/L (3.5-5.1)
[2019-02-12 08:25] LABS: APTT 30.6 Seconds (24.5-32.8); INR 1.2; PROTIME 12.5 Seconds (9.3-11.4)
--- NOTE | 2019-02-13 13:08 | PATH ---
[facility] [address] [place] [address] PATHOLOGY RPT PROCEDURE Name: RENATO MARTINEZ ODALYS Room #: REG [facility] M.R.#: [id number] ������������������ Admission: 02/12/19 ������������������ Date of : 35 Discharge: Report #: [id number] Path Case #: [id number] [facility] Accession Number: [id number] . 01 Material submitted: . pleura - PLEURAL BX LEFT SIDED. Modifiers: right . 01 Clinical history: . Calcified pleural plaque, left . 02 Diagnosis: Pleura, calcified pleural plaque left side, biopsy: - Fragments of reactive skeletal muscle, dense fibrous tissue, adipose tissue, as well as fragments of nerve. - Negative for malignancy. (IUV:pit 02/13/2019) QTP/02/13/2019 . 02 Electronically signed: . Holley Graves MD, Pathologist NPI- [id number] . 01 Gross description: . The specimen is received in formalin, labeled "Renato Martinez, left pleural BX', are few blanchard white tissues measuring 0.2 cm in greatest dimension. The content of the container is filtered into a biopsy bag and entirely submitted in A1. The specimen may not survive processing. (SWS; 02/12/2019) SHS/SHS . 02 Pathologist provided ICD-10: J92.9 . 02 CPT . 222603 Specimen Comment: A courtesy copy of this report has been sent to Specimen Comment: [phone], . Specimen Comment: Report sent to / DR PAINTING Performed at: [address], [place], [place] [id number] MD Ezekiel Cook MD Phone: [phone] Performed at: [address] [id number] MD Holley Graves MD Phone: [phone]
== END | disposition home or self-care (01) ==
LOC: CAT 07:37
PROVIDERS: Pediatrics
DX: J92.9 Pleural plaque without asbestos (principal); I11.0 Hypertensive heart disease with heart failure; I50.9 Heart failure, unspecified; E78.5 Hyperlipidemia, unspecified; J44.9 Chronic obstructive pulmonary disease, unspecified; I48.91 Unspecified atrial fibrillation; I42.9 Cardiomyopathy, unspecified; I73.9 Peripheral vascular disease, unspecified; Z95.1 Presence of aortocoronary bypass graft; Z95.0 Presence of cardiac pacemaker; Z98.890 Other specified postprocedural states; Z79.899 Other long term (current) drug therapy; Z79.82 Long term (current) use of aspirin; Z87.891 Personal history of nicotine dependence; Z79.01 Long term (current) use of anticoagulants

== ENCOUNTER → 2019-05-16 | Outpatient (CLI) | payer OTHER, BC ==
--- NOTE | 2019-05-16 11:14 | 2DMMODE ---
[facility] [place] [address] 2 D/M-MODE ECHOCARDIOGRAM Name: RENATO MARTINEZ Room #: REG [facility]#: [id number] ������������� Admission: 05/16/19 ������������� Attend Phys: Jarrell Tineo MD Discharge: ��� ������������� ��� Date of : 35 Date of Service: 05/16/19 1114 �� Report #: [id number] �������� ��������������������������������������������[id number] THIS REPORT FOR: //name// APPROVED REPORT Study performed: 05/16/2019 09:52:15 EXAM: Comprehensive 2D, Doppler, and color-flow Echocardiogram Patient Location: Out-Patient Room #: Echo Lab 2 Status: routine BSA: 2.04 HR: 60 bpm BP: 126/50 mmHg Rhythm: Pacemaker Other Information Study Quality: Excellent Indications Atrial Fibrillation Hx; CABG, CHF, Pacemaker, COPD, HTN, HLD 2D Dimensions RVDd: 50.00 mm IVSd: 9.42 (7-11mm) LVOT Diam: 21.19 (18-24mm) LVDd: 50.71 mm PWd: 11.41 (7-11mm) Ascending Ao: 33.54 (22-36mm) LVDs: 41.70 (25-40mm) Aortic Root: 33.49 mm Volumes Left Atrial Volume (Systole) Single Plane 4CH: 71.78 mL Single Plane 2CH: 101.07 mL LA ESV Index: 47.00 mL/m2 Aortic Valve AoV Peak Dominic.: 3.13 m/s AO Peak Gr.: 39.20 mmHg LVOT Max P.76 mmHg AO Mean Gr.: 21.38 mmHg LVOT Mean P.89 mmHg AO V2 Mean: 2.20 m/s LVOT Max V: 0.66 m/s AO V2 VTI: 69.12 cm LVOT Mean V: 0.43 m/s ABUNDIO (VTI): 0.82 cm2 LVOT V1 VTI: 16.16 cm ABUNDIO Vmax: 0.75 cm2 AI Vmax: 3.59 m/s SV (LVOT): 56.94 mL [facility] [address] [place] [address] 2 D/M-MODE ECHOCARDIOGRAM Name: MICHELLERENATO WASSERMANGINS Room #: REG [facility]#: [id number] ������������� Admission: 05/16/19 ������������� Attend Phys: Jarrell Tineo MD Discharge: ��� ������������� ��� Date of : 35 Date of Service: 05/16/19 1114 �� Report #: [id number] �������� ��������������������������������������������[id number] AI Rowan: 2.47 m/s2 AI PHT: 423.89 ms Mitral Valve E/A Ratio: 2.3 MV Decel. Time: 174.12 ms MV E Max Dominic.: 1.00 m/s MV A Dominic.: 0.44 m/s MV PHT: 50.50 ms IVRT: 69.20 ms Pulmonary Valve PV Peak Dominic.: 0.66 m/s PV Peak Gr.: 1.73 mmHg Pulmonary Vein P Vein S: 0.24 m/s P Vein D: 0.50 m/s P Vein S/D Ratio: 0.48 Tricuspid Valve TR Peak Dominic.: 4.09 m/s TR Peak Gr.: 66.87 mmHg PA Pressure: 77.00 mmHg Left Ventricle The left ventricle is normal size. There is normal left ventricular wall thickness. Left ventricular systolic function is moderate to severely decreased. LVEF is 30-35%. Severe diastolic dysfunction is present (restrictive filling). Right Ventricle Right ventricle is dilated. Right ventricle is hypokinetic. Pacemaker lead is present in the right ventricle. Atria Left atrium is moderately dilated. Right atrium is dilated. Aortic Valve Aortic valve is heavily calcified. Mild to moderate aortic regurgitation. There is severe valvular aortic stenosis. Calculated aortic valve area is 0.7 cm2 with maximum pressure gradient of 39 mmHg and mean pressure gradient of 21 mmHg. Mitral Valve Mitral valve leaflets are mildly thickened. Mild mitral regurgitation. No evidence of mitral valve stenosis. [facility] [address] [place] [address] 2 D/M-MODE ECHOCARDIOGRAM Name: RENATO MARTINEZ Room #: REG [place]#: [id number] ������������� Admission: 05/16/19 ������������� Attend Phys: Jarrell Tineo MD Discharge: ��� ������������� ��� Date of : 35 Date of Service: 05/16/19 1114 �� Report #: [id number] �������� ��������������������������������������������[id number] Tricuspid Valve The tricuspid valve is normal in structure. Moderate tricuspid regurgitation. Estimated PAP is 70mmHg. Pulmonic Valve The pulmonary valve is normal in structure. Mild pulmonic regurgitation. Great Vessels The aortic root is normal in size. The ascending aorta is normal in size. IVC is normal in size and collapses <50% with inspiration. Pericardium There is no pericardial effusion. <Conclusion> The left ventricle is normal size. There is normal left ventricular wall thickness. Left ventricular systolic function is moderate to severely decreased. Severe diastolic dysfunction is present (restrictive filling). Right ventricle is dilated. Pacemaker lead is present in the right ventricle. Left atrium is moderately dilated. Right atrium is dilated. Aortic valve is heavily calcified. Mild to moderate aortic regurgitation. There is severe valvular aortic stenosis. Mild mitral regurgitation. Moderate tricuspid regurgitation. Estimated PAP is 70mmHg. ��������������������������������������������� <ELECTRONICALLY SIGNED> ���������������������������������������� By: Jarrell Tineo MD ��������������������������������������������� 05/16/19 1114 1114 1114 Jarrell Tineo MD /INF
== END ==
LOC: CV 09:41
DX: I08.8 Other rheumatic multiple valve diseases (principal); I11.0 Hypertensive heart disease with heart failure; I50.9 Heart failure, unspecified; J44.9 Chronic obstructive pulmonary disease, unspecified; I48.91 Unspecified atrial fibrillation; E78.5 Hyperlipidemia, unspecified; Z95.0 Presence of cardiac pacemaker; Z95.1 Presence of aortocoronary bypass graft

== ENCOUNTER → 2019-07-23 | Outpatient (CLI) | payer OTHER, BC | LOC: CAT 08:42 | DX: I25.10 Atherosclerotic heart disease of native coronary artery without angina pectoris (principal); J44.9 Chronic obstructive pulmonary disease, unspecified; R06.02 Shortness of breath; J92.9 Pleural plaque without asbestos ==

== ENCOUNTER 2019-08-23 18:28 | Emergency (ER) | payer OTHER, BC ==
[~2019-08-23] VITALS: Ht 175.3 cm; Wt 69.4 kg
[2019-08-23 20:10] VITALS: BP 126/45
== END 2019-08-23 20:05 | disposition home or self-care (01) ==
LOC: ER 18:28
DX: R04.0 Epistaxis (principal); I10 Essential (primary) hypertension; E78.5 Hyperlipidemia, unspecified; I48.91 Unspecified atrial fibrillation; J44.9 Chronic obstructive pulmonary disease, unspecified; Z95.1 Presence of aortocoronary bypass graft; Z95.0 Presence of cardiac pacemaker; Z87.891 Personal history of nicotine dependence

== ENCOUNTER 2019-08-24 02:34 | Emergency (ER) | payer OTHER, BC ==
[~2019-08-24] VITALS: Ht 175.3 cm; Wt 69.4 kg
[2019-08-24 03:57] VITALS: BP 147/59
== END 2019-08-24 03:58 | disposition home or self-care (01) ==
LOC: ER 02:34
DX: R04.0 Epistaxis (principal); I10 Essential (primary) hypertension; I48.91 Unspecified atrial fibrillation; E78.5 Hyperlipidemia, unspecified; J44.9 Chronic obstructive pulmonary disease, unspecified; Z95.1 Presence of aortocoronary bypass graft; Z95.0 Presence of cardiac pacemaker; Z87.891 Personal history of nicotine dependence

== ENCOUNTER → 2019-11-14 | Outpatient (CLI) | payer OTHER, BC | LOC: SJCVC 15:42 | DX: Z45.02 Encounter for adjustment and management of automatic implantable cardiac defibrillator (principal); I45.10 Unspecified right bundle-branch block; I35.0 Nonrheumatic aortic (valve) stenosis; I10 Essential (primary) hypertension; I25.810 Atherosclerosis of coronary artery bypass graft(s) without angina pectoris; I48.91 Unspecified atrial fibrillation; E78.5 Hyperlipidemia, unspecified; J44.9 Chronic obstructive pulmonary disease, unspecified; Z95.1 Presence of aortocoronary bypass graft; Z79.899 Other long term (current) drug therapy; Z79.82 Long term (current) use of aspirin; Z95.810 Presence of automatic (implantable) cardiac defibrillator; Z87.891 Personal history of nicotine dependence ==

== ENCOUNTER → 2019-12-03 | Outpatient (CLI) | payer OTHER, BC | LOC: SJCVC 09:33 | DX: Z45.02 Encounter for adjustment and management of automatic implantable cardiac defibrillator (principal); I45.4 Nonspecific intraventricular block; I21.09 ST elevation (STEMI) myocardial infarction involving other coronary artery of anterior wall; R94.31 Abnormal electrocardiogram [ECG] [EKG]; I10 Essential (primary) hypertension; I25.5 Ischemic cardiomyopathy; I25.10 Atherosclerotic heart disease of native coronary artery without angina pectoris; J44.9 Chronic obstructive pulmonary disease, unspecified; E78.5 Hyperlipidemia, unspecified; I48.0 Paroxysmal atrial fibrillation; I25.2 Old myocardial infarction; Z79.899 Other long term (current) drug therapy; Z95.1 Presence of aortocoronary bypass graft; Z87.891 Personal history of nicotine dependence ==

== ENCOUNTER → 2020-03-10 | Outpatient (CLI) | payer OTHER, BC | LOC: CAT 10:35 | DX: J43.8 Other emphysema (principal); J90 Pleural effusion, not elsewhere classified; J98.4 Other disorders of lung ==

== ENCOUNTER → 2020-05-14 | Outpatient (CLI) | payer OTHER, BC | LOC: SJCVCIMAG 09:04 | PROVIDERS: ATTEND Internal Medicine Cardiovascular Disease | DX: I08.3 Combined rheumatic disorders of mitral, aortic and tricuspid valves (principal); I49.49 Other premature depolarization; I11.9 Hypertensive heart disease without heart failure; I27.20 Pulmonary hypertension, unspecified; R94.31 Abnormal electrocardiogram [ECG] [EKG]; I25.10 Atherosclerotic heart disease of native coronary artery without angina pectoris; I25.5 Ischemic cardiomyopathy; I48.91 Unspecified atrial fibrillation; Z95.1 Presence of aortocoronary bypass graft; Z95.810 Presence of automatic (implantable) cardiac defibrillator; Z79.899 Other long term (current) drug therapy; Z87.891 Personal history of nicotine dependence ==

== ENCOUNTER → 2020-09-08 | Outpatient (CLI) | payer OTHER, BC | LOC: CAT 09:14 | PROVIDERS: ATTEND Pediatrics | DX: J43.9 Emphysema, unspecified (principal); J92.9 Pleural plaque without asbestos; I25.10 Atherosclerotic heart disease of native coronary artery without angina pectoris; J98.4 Other disorders of lung ==

== ENCOUNTER 2020-09-12 16:23 | Emergency (ER) | payer OTHER, BC ==
[~2020-09-12] VITALS: Ht 177.8 cm; Wt 63.5 kg
--- NOTE | ~2020-09-12 | EKG ---
[facility] [place] [address] ELECTROCARDIOGRAM REPORT Name: RENATO MARTINEZ ODALYS [facility] [id number] Admission: 09/12/20 Attend Phys: Discharge: 09/12/20 Date of : 35 Report #: [id number] THIS REPORT FOR: cc: Van Mccall Gregory DO Epiphany, Epiphany MD ~ THIS REPORT FOR: //name// [facility] ED Test Date: 2020-09-12 Test Time: 16:31:50 Pat Name: RENATO MARTINEZ Department: Room: Gender: M Catalyst Impregnator: KF : 1935 Requested By: Guero Cortes Order Number: [id number] MD: Measurements Intervals [place] Rate: 60 P: 0 MS: 184 QRS: 192 QRSD: 177 T: 5 QT: 464 QTc: 464 Interpretive Statements Ventricular-paced complexes No further analysis attempted due to paced rhythm Baseline wander in lead(s) V1 No previous ECG available for comparison [email or web address] By: 1631 1631 Epiphany EpiphanyMD /EPI
[2020-09-12 16:54] LABS: ABSOLUTE NEUTROPHILS 3.9 thou/uL (1.4-8.2); BASOPHILS 0.7 % (0.0-2.0); EOSINOPHILS 0.2 % (0.0-3.0); HEMATOCRIT 37.4 % (42.0-52.0); LYMPHOCYTES 7.5 % (24.0-44.0); MCH 30.4 pg (26.0-34.0); MCHC 32.1 g/dL (28.0-37.0); MCV 94.6 fL (80.0-100.0); MONOCYTES 8.7 % (1.0-8.0); PLATELET COUNT 130 thou/uL (150-400); POLYS 82.9 % (36.0-66.0); RBC 3.96 mil/uL (4.50-6.00); RDW 17.1 % (10.5-14.5); WBC 4.7 thou/uL (4.0-11.0)
[2020-09-12 17:03] LABS: ANION GAP 9 mmol/L (7-16); BUN 90 mg/dL (7-18); CALCIUM 8.8 mg/dL (8.5-10.1); CHLORIDE 101 mmol/L (98-107); CO2 25 mmol/L (21-32); CREATININE 3.6 mg/dL (0.7-1.3); GLUCOSE 106 mg/dL (74-106); POTASSIUM 5.6 mmol/L (3.5-5.1); SODIUM 135 mmol/L (136-145)
[2020-09-12 17:12] LABS: TROPONIN-I <0.06 ng/mL (<0.06)
[2020-09-12] MEDS ORDERED: NITROGLYCERIN0.4 MG SUBLING (20:37)
[2020-09-12 21:03] VITALS: BP 113/45
== END 2020-09-12 21:05 | disposition home or self-care (01) ==
LOC: ER 16:23
PROVIDERS: Emergency Medicine
DX: R07.9 Chest pain, unspecified (principal); J44.9 Chronic obstructive pulmonary disease, unspecified; I25.10 Atherosclerotic heart disease of native coronary artery without angina pectoris; I10 Essential (primary) hypertension; E78.5 Hyperlipidemia, unspecified; Z95.0 Presence of cardiac pacemaker; Z95.1 Presence of aortocoronary bypass graft; Z79.82 Long term (current) use of aspirin; Z79.899 Other long term (current) drug therapy; Z87.891 Personal history of nicotine dependence

== ENCOUNTER 2020-09-18 13:06 | Inpatient (IN) | payer OTHER, BC ==
[~2020-09-18] VITALS: Ht 180.3 cm; Wt 71.0 kg
[~2020-09-18 13:06] MED LIST changes: +NITROGLYCERIN0.4 MG SUBLING
[2020-09-18 13:11] VITALS: BP 100/53
[2020-09-18 14:07] LABS: ABSOLUTE NEUTROPHILS 11.8 thou/uL (1.4-8.2); BASOPHILS 0.4 % (0.0-2.0); HEMATOCRIT 41.2 % (42.0-52.0); HEMOGLOBIN 12.8 gm/dL (14.0-18.0); LYMPHOCYTES 2.1 % (24.0-44.0); MCHC 31.1 g/dL (28.0-37.0); MCV 96.4 fL (80.0-100.0); MONOCYTES 5.1 % (1.0-8.0); PLATELET COUNT 106 thou/uL (150-400); POLYS 92.4 % (36.0-66.0); RBC 4.28 mil/uL (4.50-6.00); WBC 12.8 thou/uL (4.0-11.0)
[2020-09-18 14:25] LABS: ANION GAP 11 mmol/L (7-16); BUN 96 mg/dL (7-18); CALCIUM 8.8 mg/dL (8.5-10.1); CHLORIDE 101 mmol/L (98-107); CO2 22 mmol/L (21-32); CREATININE 3.6 mg/dL (0.7-1.3); GLUCOSE 96 mg/dL (74-106); SODIUM 134 mmol/L (136-145)
[2020-09-18 14:26] LABS: POTASSIUM 5.3 mmol/L (3.5-5.1)
[2020-09-18 14:32] LABS: ALBUMIN 3.1 g/dL (3.4-5.0); SGOT 21 U/L (15-37); SGPT 8 U/L (30-65); TOTAL BILIRUBIN 1.2 mg/dL (0.2-1.0); TROPONIN-I <0.06 ng/mL (<0.06)
--- NOTE | 2020-09-18 15:57 | EKG ---
[facility] [place] [address] ELECTROCARDIOGRAM REPORT Name: RENATO MARTINEZ Room #: 170-5 ADM IN M.R.#: [id number] Admission: 09/18/20 Attend Phys: Jackie Ramires MD Discharge: Date of : 35 Report #: [id number] THIS REPORT FOR: cc: Van Mccall Gregory DO Lundgren,Aureliano De La Paz MD [facility] THIS REPORT FOR: //name// [facility] ED Test Date: 2020-09-18 Test Time: 13:22:03 Pat Name: RENATO MARTINEZ Department: Room: [facility] Gender: M Cook Helper Preserves: MEIK : 1935 Requested By: Yara Valerio Order Number: [id number] MD: Aureliano Narvaez Measurements Intervals [place] Rate: 60 P: NM: 76 QRS: -169 QRSD: 182 T: -15 QT: 493 QTc: 493 Interpretive Statements Ventricular-paced complexes No further rhythm analysis attempted due to paced rhythm Baseline wander in lead(s) V1 Compared to ECG 09/12/2020 16:31:50 No significant change was found Electronically Signed On 09-18-2020 15:57:25 FISH NET STRINGER by Aureliano Narvaez [email or web address] <ELECTRONICALLY SIGNED> By: Aureliano Narvaez MD, [facility] 09/18/20 1557 1322 1322 Aureliano Narvaez MD, FAC /EPI
[2020-09-18 23:50] VITALS: BP 96/50
[2020-09-19] VITALS (7 sets, daily range): BP systolic 96–105; BP diastolic 48–54
[2020-09-19 05:05] LABS: HEMATOCRIT 38.1 % (42.0-52.0); HEMOGLOBIN 12.1 gm/dL (14.0-18.0); MCH 29.9 pg (26.0-34.0); MCHC 31.7 g/dL (28.0-37.0); MCV 94.4 fL (80.0-100.0); RBC 4.04 mil/uL (4.50-6.00); WBC 8.6 thou/uL (4.0-11.0)
[2020-09-19 05:13] LABS: CALCIUM 8.8 mg/dL (8.5-10.1); CREATININE 3.8 mg/dL (0.7-1.3); POTASSIUM 4.9 mmol/L (3.5-5.1)
--- NOTE | 2020-09-19 07:27 | NUR ---
admit pt admitted to room 361 via ed for pneumonia and r/o covid. vss pt oriented to room call light and plan of care. family calling very hostile to staff. spoke with daughter and son on phone explained visitation lilitations and poc family calmed down after they spoke to pt on facetime continue poc.
--- NOTE | 2020-09-19 19:30 | NUR ---
RN ASSUMED PT'S CARE AT 0700AM, PT IS A&OX2 ( PERSON AND PLACE ), PT CAN FOLLOW COMMANDS, PT'S VS ARE STABLE, RN HAS NOTIFIED DR AND PT'S ABOUT PT POOR EATING , AND POOR DINKING, PT IS CONTIUNING IV FLUID AND IV ABX, RN HAS REPORTED DR ABOUT PT'S URINARY RETENTION, NEW [place] CATHER PUT IN ABOUT 1800PM PER DR ORDER, PT WILL NEED SECOND COVID TEST PER ID DR ORDER, RN HAS REPORTED TO NEXT SHIFT.
[2020-09-20 01:31] LABS: URINE BILIRUBIN NEGATIVE (Negative); URINE BLOOD 3+ (Negative); URINE CLARITY SL CLOUDY; URINE COLOR YELLOW; URINE GLUCOSE-RANDOM* NEGATIVE (Negative); URINE KETONES NEGATIVE (Negative); URINE LEUKOCYTES 2+ (Negative); URINE NITRITE NEGATIVE (Negative); URINE PROTEIN (DIPSTICK) 2+ (Negative)
[2020-09-20 01:35] LABS: URINE CREATININE-RANDOM* 144.2 mg/dL
[2020-09-20 01:39] LABS: BACTERIA 1-9 Few /HPF (None Seen); CRYSTALS None Seen /LPF (None Seen); FINE GRANULAR CASTS 0-3 Few /LPF (None Seen); MUCUS 0-3 Light strn/LPF (None Seen); SQUAMOUS None Seen /LPF (0-3)
[2020-09-20 01:40] LABS: AMORPHOUS URATES Moderate /LPF (None Seen)
[2020-09-20 04:01] VITALS: BP 96/48
[2020-09-20 06:38] LABS: HEMATOCRIT 40.8 % (42.0-52.0); HEMOGLOBIN 13.1 gm/dL (14.0-18.0); MCH 30.5 pg (26.0-34.0); MCHC 32.1 g/dL (28.0-37.0); MCV 95.1 fL (80.0-100.0); RBC 4.29 mil/uL (4.50-6.00); RDW 17.6 % (10.5-14.5); WBC 9.7 thou/uL (4.0-11.0)
[2020-09-20 06:44] LABS: CALCIUM 9.1 mg/dL (8.5-10.1); POTASSIUM 5.4 mmol/L (3.5-5.1)
--- NOTE | 2020-09-20 07:39 | NUR ---
progress pt alert able to turn self. able to express his needs all he wanted to do was sleep. tele intact reading sa/afib vss, skin dry and intact no wounds noted, iv antibiotics and ivf's infused as ordered continue to monitor.
--- NOTE | 2020-09-20 13:30 | NUR ---
WE FUND PT DID NOT RESPONSE AT 0740AM , WE CHECKED PT NO PULSE ,WE STARTED TO CALL CODE BLUE AND CPR IMMEDIATELY, CODE TEAM HAD WORKED FOR THIS PT ABOUT 25 MIN, 7 ET TUNE WAS PLACED , BUT PT PT AT 0819AM, RN HAD NOTIFIED PT'S FAMILY DRUING CODE TIME, PT'S AND SON CAME PT'S ROOM TO SEE PT, WE DID THE BODY CARE , HOME PERSON WITH HOSPITAL SECURITY STAFF WEED CONTROLLER PT AT 1320PM.PT'S HAD NOTIFIED.
== END 2020-09-20 13:20 | DRG 871 ==
LOC: ER 13:06 → EROBS 15:41 → 3W 19:12
PROVIDERS: Internal Medicine Nephrology; Physician Assistant; ADMIT Internal Medicine; ATTEND Internal Medicine
PROC: 0BH17EZ Insertion of Endotracheal Airway into Trachea, Via Natural or Artificial Opening (ICD-10-PCS; principal; 2020-09-20)
PROC: 5A12012 Performance of Cardiac Output, Single, Manual (ICD-10-PCS; principal; 2020-09-20)
DX: A41.9 Sepsis, unspecified organism (principal); J18.9 Pneumonia, unspecified organism; N17.9 Acute kidney failure, unspecified; R65.20 Severe sepsis without septic shock; E78.5 Hyperlipidemia, unspecified; I25.10 Atherosclerotic heart disease of native coronary artery without angina pectoris; I95.9 Hypotension, unspecified; J44.9 Chronic obstructive pulmonary disease, unspecified; R91.8 Other nonspecific abnormal finding of lung field; I35.0 Nonrheumatic aortic (valve) stenosis; I25.5 Ischemic cardiomyopathy; I12.9 Hypertensive chronic kidney disease with stage 1 through stage 4 chronic kidney disease, or unspecified chronic kidney disease; N18.9 Chronic kidney disease, unspecified; I27.20 Pulmonary hypertension, unspecified; D64.9 Anemia, unspecified; C45.7 Mesothelioma of other sites; I48.0 Paroxysmal atrial fibrillation; I46.9 Cardiac arrest, cause unspecified; Z20.828 Contact with and (suspected) exposure to other viral communicable diseases; Z95.1 Presence of aortocoronary bypass graft; Z95.0 Presence of cardiac pacemaker; Z79.82 Long term (current) use of aspirin; Z79.899 Other long term (current) drug therapy
CPT/HCPCS: 10879